=== PATIENT | female | born 1950 | race Caucasian/White ===

== ENCOUNTER 2017-10-30 07:55 | Day surgery (SDC) | payer MEDICARE, OTHER ==
[~2017-10-30 07:55] MED LIST: Lactated Ringers 1,000 ML IV SCH; Lidocaine 1%/Sod Bicarbonate in NS 8.4% 1 ML Syringe IDERM PRN; Sodium Chloride 0.9% 10 ML Syringe FLUSH PRN
[2017-10-30] MEDS ORDERED: Midazolam 1 MG/ML 2 ML SDV ONE (08:31)
[2017-10-30] MEDS ORDERED: Propofol 200 MG/20 ML SDV ONE ×2 (08:31→09:40)
[2017-10-30] MEDS ORDERED: Lidocaine 1% 4 ML ONE (08:31)
[2017-10-30] MEDS ORDERED: fentaNYL 100 MCG/2 ML SDV ONE (08:31)
[2017-10-30] MEDS ORDERED: Ondansetron 4 MG/2 ML SDV ONE (08:31)
--- NOTE | 2017-10-30 08:37 | PCM.PREANE ---
Preanesthetic Assessment - Procedure Proposed Procedure: Uterine D&C, polypectomy and hysteroscopy - Anesthesia/Transfusion/Family Hx Anesthesia History: Prior Anesthesia Without Reaction Type of Anesthesia Reaction: Excessive Somnolence Family History of Anesthesia Reaction: No Transfusion History: No Prior Transfusion(s) Intubation History: Unknown - Review of Systems General: No Symptoms Pulmonary: No Symptoms Cardiovascular: Other (HTN, HLD, heart murmer ) Gastrointestinal: Other (GERD- none at the moment ) Neurological: No Symptoms Other: Reports: Easy Bruising (from ASA), Diabetes, Depression - Physical Assessment NPO Status Date: 10/29/17 NPO Status Time: 22:00 O2 Sat by Pulse Oximetry: 92 Respiratory Rate: 16 Vital Signs: Last Vital Signs Temp 36.4 C 10/30/17 07:50 Pulse 94 10/30/17 07:50 Resp 16 10/30/17 07:50 BP 149/85 H 10/30/17 07:50 Pulse Ox 92 L 10/30/17 07:50 ASA Class: 2 Mental Status: Alert & Oriented x3 Airway Class: Mallampati = 2 Dentition: Reports: Missing Tooth/Teeth (multiple missing molars ) Thyro-Mental Finger Breadths: 3 Mouth Opening Finger Breadths: 3 ROM/Head Extension: Full Lungs: Clear to Auscultation, Normal Respiratory Effort Cardiovascular: Regular Rate, Regular Rhythm, Murmurs (slight ) - Lab Values: Laboratory Last Values WBC 6.80 K/mm3 (3.98-10.04) 10/30/17 08:15 RBC 4.93 M/mm3 (3.98-5.22) 10/30/17 08:15 Hgb 14.6 gm/L (11.2-15.7) 10/30/17 08:15 Hct 43.6 % (34.1-44.9) 10/30/17 08:15 MCV 88.4 fl (79.4-94.8) 10/30/17 08:15 MCH 29.6 pg (25.6-32.2) 10/30/17 08:15 MCHC 33.5 g/dl (32.2-35.5) 10/30/17 08:15 RDW Std Deviation 42.9 fL (36.4-46.3) 10/30/17 08:15 Plt Count 290 K/mm3 (182-369) 10/30/17 08:15 MPV 11.3 fl (9.4-12.3) 10/30/17 08:15 Neut % (Auto) 58.6 % (34.0-71.1) 10/30/17 08:15 Lymph % (Auto) 28.5 % (19.3-51.7) 10/30/17 08:15 [place] % (Auto) 8.7 % (4.7-12.5) 10/30/17 08:15 Eos % (Auto) 3.4 (0.7-5.8) 10/30/17 08:15 Baso % (Auto) 0.7 % (0.1-1.2) 10/30/17 08:15 Neut # (Auto) 3.98 K/mm3 (1.56-6.13) 10/30/17 08:15 Lymph # (Auto) 1.94 K/mm3 (1.18-3.74) 10/30/17 08:15 [place] # (Auto) 0.59 K/mm3 (0.24-0.36) H 10/30/17 08:15 Eos # (Auto) 0.23 K/mm3 (0.04-0.36) 10/30/17 08:15 Baso # (Auto) 0.05 K/mm3 (0.01-0.08) 10/30/17 08:15 - Allergies Allergies/Adverse Reactions: Allergies Allergy/AdvReac Type Severity Reaction Status Date / Time sulfamethoxazole Allergy Rash Verified 10/29/17 11:38 [From Bactrim] trimethoprim [From Bactrim] Allergy Rash Verified 10/29/17 11:38 - Blood Blood Available: No Product(s) Available: None - Anesthesia Plan Pre-Op Medication Ordered: None - Acknowledgements Anesthesia Type Planned: General Anesthesia (If MAC is not tolerated ), MAC Pt an Appropriate Candidate for the Planned Anesthesia: Yes Alternatives and Risks of Anesthesia Discussed w Pt/Guardian: Yes Pt/Guardian Understands and Agrees with Anesthesia Plan: Yes PreAnesthesia Questionnaire HEENT History: Reports: Cataract, Sinusitis Cardiovascular History: Reports: High Cholesterol, Hypertension Respiratory History: Reports: None Gastrointestinal History: Reports: GERD Genitourinary History: Reports: UTI, Recurrent CONTRACT PROGRAMMER History: Reports: , Other (See Below) Other OB/BYN History: , breast pain, cervical atypia, cervical lesion, cervical polyp, pelvic pressure Musculoskeletal History: Reports: Osteoporosis, Other (See Below) Other Musculoskeletal History: Muscle spasms Neurological History: Reports: Migraines, Other (See Below) Other Neuro History: trigeminal neuralgia Psychiatric History: Reports: Anxiety, Depression, Other (See Below) Other Psychiatric History: fatigue Endocrine/Metabolic History: Reports: Diabetes, Type II, Vitamin D Deficiency Hematologic History: Reports: Anemia Immunologic History: Reports: None Oncologic (Cancer) History: Reports: None Dermatologic History: Reports: None - Past Surgical History Head Surgeries/Procedures: Reports: None HEENT Surgical History: Reports: None Cardiovascular Surgical History: Reports: None Respiratory Surgical History: Reports: None GI Surgical History: Reports: Appendectomy Female Surgical History: Reports: None Male Surgical History: Reports: None Endocrine Surgical History: Reports: None Neurological Surgical History: Reports: None Oncologic Surgical History: Reports: None Dermatological Surgical History: Reports: None - SUBSTANCE USE Smoking Status *Q: Never Smoker Recreational Drug Use History: No - HOME MEDS Home Medications: Home Meds Alendronate Sodium [Fosamax] 70 mg PO WEEKLY 10/29/17 [History] Aspirin [Halfprin] 81 mg PO DAILY 10/29/17 [History] Calcium Carbonate/Vitamin D3 [Calcium 600 + Vit D 400 Softgl] 1 tab PO DAILY 04/10 [History] Escitalopram [Lexapro] 10 mg PO DAILY 10/29/17 [History] Losartan [Cozaar] 100 mg PO DAILY 10/29/17 [History] Lutein 20 mg PO DAILY 10/29/17 [History] Magnesium Oxide/Mag AA Chelate [Magnesium] 300 mg PO DAILY 10/29/17 [History] Potassium Chloride 10 meq PO DAILY 10/29/17 [History] Ranitidine HCl [Zantac] 150 mg PO DAILY 10/29/17 [History] atorvaSTATin [Lipitor] 20 mg PO BEDTIME 10/29/17 [History] metFORMIN [Glucophage XR] 500 mg PO BID 10/29/17 [History] - CURRENT (IN HOUSE) MEDS Current Meds: Current Medications Lactated Ringer's (Ringers, Lactated) 1,000 mls @ 125 mls/hr IV ASDIRECTED SHERMAN Stop: 10/30/17 23:00 Lidocaine/Sodium Bicarbonate (Buffered Lidocaine 1% In Ns 8.4%) 0.25 ml IDERM ONETIME PRN PRN Reason: Prior to IV Start Stop: 10/30/17 18:00 Sodium Chloride (Saline Flush) 10 ml FLUSH ASDIRECTED PRN PRN Reason: Keep Vein Open Stop: 10/30/17 18:00 Discontinued Medications Fentanyl (Sublimaze) Confirm Administered Dose 100 mcg .ROUTE .STK-MED ONE Stop: 10/30/17 08:32 Lidocaine HCl (Xylocaine-Mpf 1%) Confirm Administered Dose 4 mls @ as directed .ROUTE .STK-MED ONE Stop: 10/30/17 08:32 Midazolam HCl (Versed 1 Mg/Ml) Confirm Administered Dose 2 mg .ROUTE .STK-MED ONE Stop: 10/30/17 08:32 Ondansetron HCl (Zofran) Confirm Administered Dose 4 mg .ROUTE .STK-MED ONE Stop: 10/30/17 08:32 Propofol (Diprivan 20 Ml) Confirm Administered Dose 200 mg .ROUTE .STK-MED ONE Stop: 10/30/17 08:32
[2017-10-30] MEDS ORDERED: Lidocaine 1% 30 ML SDV ONE (08:59)
[2017-10-30] MEDS ORDERED: Ketamine 500 mg/10 ML MDV ONE (09:09)
[2017-10-30] MEDS ORDERED: ceFAZolin 1 GM Vial ONE (09:09)
[2017-10-30] MEDS ORDERED: Bacitracin Oint 15 GM Tube ONE (09:39)
--- NOTE | 2017-10-30 09:56 | PCM48HPAN ---
Post Anesthesia Note - EVALUATION WITHIN 48HRS OF ANESTHETIC Vital Signs in Normal Range: Yes Patient Participated in Evaluation: Yes Respiratory Function Stable: Yes Airway Patent: Yes Cardiovascular Function Stable: Yes Hydration Status Stable: Yes Pain Control Satisfactory: Yes Nausea and Vomiting Control Satisfactory: Yes Mental Status Recovered: Yes
--- NOTE | 2017-10-30 09:57 | PCM.OPNOTE ---
- General Post-Op/Procedure Note Date of Surgery/Procedure: 10/30/17 Operative Procedure(s): Polypectomy with hysteroscopy and D&C [id number] approximately 6 x 6 x 6 mm. Vulvar biopsy first 622915-8 mm biopsy. Vulvar biopsy second and third 157383-7 mm biopsy Pre Op Diagnosis: Cervical polyp. Vulvar leukoplakia Post-Op Diagnosis: Same Anesthesia Technique: MAC Primary Surgeon: Ferny Lugo Anesthesia Provider: Isabel Jasso Contract Negotiation Manager: Quinn Etienne ([place]) Reason Contract Negotiation Manager Was Necessary: Student learning, retraction Role of Contract Negotiation Manager: Student learning, retraction Fluid Replacement, Intraop: 600 Output, Urine Amount: 0 EBL in mLs: 2 Drain/Tube Comments:: None Complications: None Condition: Good Free Text/Narrative:: Patient was transported to operating room #2 and placed under MAC anesthesia in the low dorsal lithotomy position and prepared and draped in a sterile fashion. SCDs in place and functioning prior surgery. Ancef 2 g given intravenously prior surgery. Timeout performed confirming name date of and procedure as vulvar biopsies hysteroscopy with polypectomy and D&C. The patient had several small lesions of leukoplakia of the vulva. Injected half milliliter of lidocaine 1% without epinephrine in the areas the planned biopsies. 4 mm but punch biopsies performed on the right labia minora inferior left labia minora inferior and at the introitus midline. Hemostasis was obtained with electrocautery tissue was sent to pathology for tissue evaluation. The cervix was grasped with a long Allis clamp and the 6 x 6 x 6 mm cervical polyp was grasped and utilizing tonsil snare is a polyp was removed without difficulty. Endocervical curettage performed uterus sounded to 7 cm and carefully dilated to accommodate the hysteroscope. Hysteroscopy was performed both tubal ostia were visualized. The endometrial lining was atrophic. No additional polyps. Endocervical curettage was performed and scant tissue was obtained probably insufficient for diagnosis. This is consistent with the patient's age and history. Sponge needle pack instrument count correct 2 patient was transported back to her room in day surgery. No complications no blood transfusions required. Bacitracin placed on the areas of the punch biopsies. Patient will apply this 2-3 times daily at home. I talked with her daughter at phone #[phone] IS answered voiced satisfaction.
== END 2017-10-30 11:50 | disposition home or self-care (01) ==
LOC: JD.SDS 07:55
PROVIDERS: ATTEND Obstetrics & Gynecology
DX: N76.3 Subacute and chronic vulvitis (principal); N90.69 Other specified hypertrophy of vulva; N84.1 Polyp of cervix uteri; N90.4 Leukoplakia of vulva; I10 Essential (primary) hypertension; E11.9 Type 2 diabetes mellitus without complications; K21.9 Gastro-esophageal reflux disease without esophagitis; E78.5 Hyperlipidemia, unspecified; F32.9 Major depressive disorder, single episode, unspecified; Z88.1 Allergy status to other antibiotic agents; Z88.2 Allergy status to sulfonamides; J30.81 Allergic rhinitis due to animal (cat) (dog) hair and dander; Z79.82 Long term (current) use of aspirin; Z79.84 Long term (current) use of oral hypoglycemic drugs; Z79.899 Other long term (current) drug therapy; Z72.0 Tobacco use
CPT/HCPCS: 36415; 56605; 56606; 58558; 80053; 85025; 86850; 86900; 86901; A9270; J0690; J2250; J2405; J3010; J7120; 00952; 88305; J2704

== ENCOUNTER 2020-02-21 06:46 | Day surgery (SDC) | payer MEDICARE, OTHER ==
[2020-02-21] MEDS ORDERED: Bupivacaine 0.5% 30 ML SDV ONE (07:09)
[2020-02-21] MEDS ORDERED: Sodium Chloride 0.9% 50 ML SDV ONE (07:09)
[2020-02-21] MEDS ORDERED: Lidocaine 1% with EPINEPHrine 1:100,000 20 ML MDV ONE (07:09)
[2020-02-21] MEDS ORDERED: Ondansetron 4 MG/2 ML SDV ONE (07:41)
[2020-02-21] MEDS ORDERED: Rocuronium 50 MG/5 ML Vial ONE (07:41)
[2020-02-21] MEDS ORDERED: Propofol 200 MG/20 ML SDV ONE (07:41)
[2020-02-21] MEDS ORDERED: Lidocaine 1% 4 ML ONE (07:42)
[2020-02-21] MEDS ORDERED: Midazolam 1 MG/ML 2 ML SDV ONE (07:42)
[2020-02-21] MEDS ORDERED: fentaNYL 250 MCG/5 ML SDV ONE (07:42)
[2020-02-21] MEDS ORDERED: Ketorolac 30 MG/ML SDV ONE (07:42)
[2020-02-21] MEDS ORDERED: ceFAZolin 1 GM Vial ONE (07:46)
[2020-02-21] MEDS ORDERED: ePHEDrine Sulfate/0.9% NaCl/Pf 25 MG/5 ML SYRINGE IV ONE (08:23)
[2020-02-21] MEDS ORDERED: Lactated Ringers 1,000 ML ONE (08:31)
[2020-02-21] MEDS ORDERED: HYDROmorphone 1 MG/ML Syringe ONE (08:49)
[2020-02-21] MEDS ORDERED: Dexamethasone 4 MG/ML 5 ML MDV ONE (08:54)
[2020-02-21] MEDS ORDERED: fentaNYL 100 MCG/2 ML SDV ONE (08:57)
--- NOTE | 2020-02-21 09:54 | PCM.OPNOTE ---
- General Post-Op/Procedure Note Date of Surgery/Procedure: 02/21/20 Operative Procedure(s): Laparoscope assisted vaginal hysterectomy with bilateral salpingo-oophorectomy Pre Op Diagnosis: Right ovarian cyst, elevated CEA. Post-Op Diagnosis: Same Anesthesia Technique: General ET Tube Primary Surgeon: Ferny Lugo Secondary Surgeon: Obinna Melendez Anesthesia Provider: Derian Alexander Qa Analyst: Sophia Lewis (PAS) Reason Qa Analyst Was Necessary: Assist in surgery, retraction, decrease comorbidity and mortality. Role of Qa Analyst: Assist in surgery, retraction, decrease comorbidity and mortality. Fluid Replacement, Intraop: 1,800 Output, Urine Amount: 400 EBL in mLs: 25 Drain/Tube Comments:: None Complications: None Condition: Good Free Text/Narrative:: Intake & Output 02/20/20 02/21/20 02/21/20 22:59 06:59 14:59 Output Total 375 Balance -375 Patient was transported to the operating room and medical office building surgery area room #3 placed under general anesthesia with endotracheal intubation in the low dorsolithotomy position prepared and draped in a sterile fashion. Mason catheter placed to gravity drainage. Timeout was performed confirming name date of and procedure as laparoscopic-assisted vaginal hysterectomy bilateral salpingo-oophorectomy possible total abdominal hysterectomy bilateral salpingo-oophorectomy. SCDs in place and functioning prior to surgery. Ancef 2 g given intravenously prior to surgery. The uterine manipulator was placed without difficulty. Patient had laparoscopy performed by injecting 2 mL of Marcaine 0.5% without epinephrine at the area of the umbilicus. Vertical incision was made pneumoperitoneum needle was introduced and pneumoperitoneum was obtained without difficulty. 5 mm trocar self- retaining was introduced. Prompt visualization of pelvic organs was accomplished additional ports were placed at the right and left lower quadrants after transilluminating the abdomen to avoid vascular injury if possible. Injecting 2 mL of Marcaine 0.5% without epinephrine 5 mm incision made in the self-retaining ports were introduced. The uterus tubes and ovaries were identified the right ovary did appear cystic but was not abnormally enlarged approximately 2.5 cm cyst on the right ovary. No fluid in the cul-de-sac for as piration for cytology. Patient's had previous appendectomy. Gallbladder was not able to be visualized liver appeared normal. There were no adhesions of the liver to the anterior abdominal wall. No evidence of studding or abnormal appearing masses. The attention was then turned to the pelvis the uterus was grasped and utilizing Enseal crossclamping activating and incising the utero- ovarian ligament was crossclamped incised after activating the Enseal. Proceeding caudad the mesosalpinx removing the remaining portion of fallopian tubes with crossclamping activating and incising with the Enseal. The round ligament was then crossclamped Enseal activated and incised. Proceeding caudad crossclamping activating and incising until reflection of the bladder to the lower uterine segment was approached. Bladder flap was created utilizing the Enseal. Additional bite with the Enseal obtained the uterine vascular tumor electrocoagulating laterally and then again electrocoagulating medially and incising the procedure on the right side was completed laparoscopically. Same procedure was carried out on the left side. Attention was then turned to the pelvis the uterus was grasped injecting lidocaine 0.25% with epinephrine and multiple confluent areas utilizing 22 mL. Circumscribing incision was then made posterior cul-de-sac was entered with Metzenbaum scissors without difficulty. The anterior colpotomy was also performed without difficulty. Utilizing Enseal crossclamping activating and incising the uterosacral bundle and cardinal ligaments were incised. One additional bite on the left side completed the removal of vessels and tissue on the patient's left side. Same procedure was carried out on the right side utilizing 2 applications of the Enseal and the uterus was removed without difficulty. No vaginal bleeding was noted the posterior cuff was then grasped and closed with 0 Monocryl running locking suture beginning on the patient's right and proceeding to her left side. The anterior and posterior vaginal cuff were then suture-ligated beginning on the patient's left and proceeding to her right. Hemostasis was normal no bleeding attention was then turned to the abdomen again the pneumoperitoneum was reobtained inspection of the operative site showed no bleeding. The pneumoperitoneum was reduced and the 3 incisions on the abdomen were suture- ligated with 3-0 Monocryl interrupted suture Dermabond was applied patient was transported to postanesthesia care unit in satisfactory condition no blood transfusions were required. Mason catheter was removed at the end of the procedure. I talked with patient's daughter after surgery all questions were answered to her voiced satisfaction. Images taken Image 001 shows the uterus and left round ligament Image 002 shows a left ovary and remaining portion of fallopian tube Image 003 shows the right fallopian tube and right ovary which appears cystic. Image 004 shows the area of the previous appendectomy. Image 005 shows the liver gallbladder is not visualized. Image 006 shows the cul-de-sac after completion of the hysterectomy with no active bleeding. Image 007 shows right lower quadrant trocar removal with no bleeding. Patient will be kept on extended recovery overnight as she lives more than an hour away from the hospital in case there are any problems or complications.
--- NOTE | 2020-02-21 10:06 | PCM.PREANE ---
Preanesthetic Assessment - Procedure Proposed Procedure: lap assisted vaginal hysterectomy - Anesthesia/Transfusion/Family Hx Anesthesia History: Prior Anesthesia Without Reaction Family History of Anesthesia Reaction: No Transfusion History: No Prior Transfusion(s) Intubation History: Unknown - Review of Systems General: No Symptoms Pulmonary: No Symptoms Cardiovascular: Dyspnea on Exertion Gastrointestinal: No Symptoms Neurological: No Symptoms Other: Reports: Easy Bleeding, Easy Bruising, Diabetes (118 this am), Depression (in winter) - Physical Assessment NPO Status Date: 02/20/20 NPO Status Time: 22:00 Vital Signs: Last Vital Signs Temp 36.3 C 02/21/20 07:10 Pulse 75 02/21/20 07:10 Resp 16 02/21/20 07:10 BP 135/79 02/21/20 07:10 Pulse Ox 94 L 02/21/20 07:10 Height: 1.6 m Weight: 72.575 kg ASA Class: 3 Mental Status: Alert & Oriented x3 Airway Class: Mallampati = 2 Dentition: Reports: [place] Neck(s), Implants (front top) Thyro-Mental Finger Breadths: 2 Mouth Opening Finger Breadths: 2 ROM/Head Extension: Limited/Partial Lungs: Clear to Auscultation, Normal Respiratory Effort Cardiovascular: Regular Rate, Regular Rhythm, Murmurs - Lab Values: Laboratory Last Values WBC 7.16 K/mm3 (3.98-10.04) 02/21/20 07:27 RBC 4.46 M/mm3 (3.98-5.22) 02/21/20 07:27 Hgb 13.3 gm/dl (11.2-15.7) 02/21/20 07:27 Hct 40.4 % (34.1-44.9) 02/21/20 07:27 MCV 90.6 fl (79.4-94.8) 02/21/20 07:27 MCH 29.8 pg (25.6-32.2) 02/21/20 07:27 MCHC 32.9 g/dl (32.2-35.5) 02/21/20 07:27 RDW Std Deviation 43.4 fL (36.4-46.3) 02/21/20 07:27 Plt Count 275 K/mm3 (182-369) 02/21/20 07:27 MPV 10.8 fl (9.4-12.3) 02/21/20 07:27 Neut % (Auto) 59.7 % (34.0-71.1) 02/21/20 07:27 Lymph % (Auto) 27.1 % (19.3-51.7) 02/21/20 07:27 [place] % (Auto) 8.1 % (4.7-12.5) 02/21/20 07:27 Eos % (Auto) 4.2 (0.7-5.8) 02/21/20 07:27 Baso % (Auto) 0.6 % (0.1-1.2) 02/21/20 07:27 Neut # (Auto) 4.28 K/mm3 (1.56-6.13) 02/21/20 07:27 Lymph # (Auto) 1.94 K/mm3 (1.18-3.74) 02/21/20 07:27 [place] # (Auto) 0.58 K/mm3 (0.24-0.36) H 02/21/20 07:27 Eos # (Auto) 0.30 K/mm3 (0.04-0.36) 02/21/20 07:27 Baso # (Auto) 0.04 K/mm3 (0.01-0.08) 02/21/20 07:27 Sodium 139 mEq/L (136-145) 02/21/20 07:27 Potassium 4.0 mEq/L (3.5-5.1) 02/21/20 07:27 Chloride 105 mEq/L (98-107) 02/21/20 07:27 Carbon Dioxide 24 mEq/L (21-32) 02/21/20 07:27 Anion Gap 14.0 (5-15) 02/21/20 07:27 BUN 14 mg/dL (7-18) 02/21/20 07:27 Creatinine 1.0 mg/dL (0.55-1.02) 02/21/20 07:27 Est Cr Clr Drug Dosing 43.92 mL/min 02/21/20 07:27 Estimated GFR (MDRD) 55 mL/min (>60) 02/21/20 07:27 BUN/Creatinine Ratio 14.0 (14-18) 02/21/20 07:27 Glucose 121 mg/dL (80-115) H 02/21/20 07:27 POC Glucose 118 mg/dL (80-115) H 02/21/20 07:24 Calcium 9.1 mg/dL (8.5-10.1) 02/21/20 07:27 Magnesium 2.1 mg/dl (1.8-2.4) 02/21/20 07:27 Total Bilirubin 0.5 mg/dL (0.2-1.0) 02/21/20 07:27 AST 22 U/L (15-37) 02/21/20 07:27 ALT 29 U/L (14-59) 02/21/20 07:27 Alkaline Phosphatase 67 U/L (46-116) 02/21/20 07:27 Total Protein 7.2 g/dl (6.4-8.2) 02/21/20 07:27 Albumin 3.4 g/dl (3.4-5.0) 02/21/20 07:27 Globulin 3.8 gm/dL 02/21/20 07:27 Albumin/Globulin Ratio 0.9 (1-2) L 02/21/20 07:27 COVID-19 PCR Not detected (NOT DETECT) 02/17/20 10:00 Blood Type A POSITIVE 02/21/20 07:27 Gel Antibody Screen Negative 02/21/20 07:27 - Imaging/EKG Impressions: EKG SR rate 56 on chart - Allergies Allergies/Adverse Reactions: Allergies Allergy/AdvReac Type Severity Reaction Status Date / Time sulfamethoxazole Allergy Rash Verified 02/21/20 07:56 [From Bactrim] trimethoprim [From Bactrim] Allergy Rash Verified 02/21/20 07:56 - Blood Blood Available: Yes Product(s) Available: PRBC - Anesthesia Plan Pre-Op Medication Ordered: None - Acknowledgements Anesthesia Type Planned: General Anesthesia Pt an Appropriate Candidate for the Planned Anesthesia: Yes Alternatives and Risks of Anesthesia Discussed w Pt/Guardian: Yes Pt/Guardian Understands and Agrees with Anesthesia Plan: Yes PreAnesthesia Questionnaire HEENT History: Reports: Allergic Rhinitis, Cataract, Impaired Vision, Sinusitis, Other (See Below) Other HEENT History: sore throat Cardiovascular History: Reports: High Cholesterol, Hypertension, Other (See Below) Other Cardiovascular History: PVCs Respiratory History: Reports: None Gastrointestinal History: Reports: Gastritis, GERD, Other (See Below) Other Gastrointestinal History: epigastric pain, dysphagia, esophagitis, GERD, hiatal hernia, Genitourinary History: Reports: UTI, Recurrent, Other (See Below) Other Genitourinary History: frequency SENIOR CAREGIVER History: Reports: , Other (See Below) Other OB/BYN History: , breast pain, cervical atypia, cervical lesion, cervical polyp, pelvic pressure Musculoskeletal History: Reports: Osteoporosis, Other (See Below) Other Musculoskeletal History: Muscle spasms Neurological History: Reports: Migraines, Other (See Below) Other Neuro History: trigeminal neuralgia, thoracic spine pain Psychiatric History: Reports: Anxiety, Depression, Other (See Below) Other Psychiatric History: fatigue Endocrine/Metabolic History: Reports: Diabetes, Type II, Vitamin D Deficiency Hematologic History: Reports: Anemia Immunologic History: Reports: None Oncologic (Cancer) History: Reports: None Dermatologic History: Reports: None - Infectious Disease History Infectious Disease History: Reports: None - Past Surgical History Head Surgeries/Procedures: Reports: None HEENT Surgical History: Reports: None, Cataract Surgery Cardiovascular Surgical History: Reports: None Respiratory Surgical History: Reports: None GI Surgical History: Reports: Appendectomy, Colonoscopy, EGD Female Surgical History: Reports: None Male Surgical History: Reports: None Endocrine Surgical History: Reports: Parathyroidectomy Neurological Surgical History: Reports: None Oncologic Surgical History: Reports: None Dermatological Surgical History: Reports: None - SUBSTANCE USE Smoking Status *Q: Never Smoker Tobacco Use Within Last Twelve Months: No Second Hand Smoke Exposure: No Days Per Week of Alcohol Use: 0 Number of Drinks Per Day: 0 Total Drinks Per Week: 0 Recreational Drug Use History: No - HOME MEDS Home Medications: Home Meds Escitalopram [Lexapro] 10 mg PO DAILY 10/29/17 [History] Potassium Chloride 20 meq PO QAM 10/29/17 [History] atorvaSTATin [Lipitor] 20 mg PO BEDTIME 10/29/17 [History] metFORMIN [Glucophage XR] 500 mg PO BID 10/29/17 [History] Calcium Carbonate/Vitamin D3 [Calcium 500 + Vit D Caplet] 1 tab PO TID 03/05/19 [History] Magnesium Chloride [Slow-Mag] 1 tab PO DAILY 03/05/19 [History] Pantoprazole Sodium [Protonix] 40 mg PO DAILY 03/05/19 [History] Latanoprost 1 drop EYEBOTH BEDTIME 02/20/20 [History] Lutein 20 mg PO BEDTIME 02/20/20 [History] Olmesartan Medoxomil [Benicar] 40 mg PO QAM 02/20/20 [History] Potassium Chloride 10 meq PO BEDTIME 02/20/20 [History] SitaGLIPtin [Januvia] 100 mg PO QAM 02/20/20 [History] amLODIPine Besylate [Norvasc] 2.5 mg PO BEDTIME 02/20/20 [History] - CURRENT (IN HOUSE) MEDS Current Meds: Current Medications Lactated Ringer's (Ringers, Lactated) 1,000 mls @ 125 mls/hr IV ASDIRECTED SHERMAN Stop: 02/21/20 23:00 Last Admin: 02/21/20 07:15 Dose: 125 mls/hr Documented by: Lidocaine/Sodium Bicarbonate (Buffered Lidocaine 1% In Ns 8.4%) 0.25 ml IDERM ONETIME PRN PRN Reason: Prior to IV Start Stop: 02/21/20 18:00 Last Admin: 02/21/20 07:15 Dose: 0.25 ml Documented by: Sodium Chloride (Saline Flush) 10 ml FLUSH ASDIRECTED PRN PRN Reason: Keep Vein Open Stop: 02/21/20 18:00 Discontinued Medications Bupivacaine HCl (Marcaine 0.5%) Confirm Administered Dose 30 ml .ROUTE .STK-MED ONE Stop: 02/21/20 07:10 Last Admin: 02/21/20 08:31 Dose: 20 ml Documented by: Cefazolin Sodium (Ancef) Confirm Administered Dose 2 gm .ROUTE .STK-MED ONE Stop: 02/21/20 07:47 Dexamethasone (Dexamethasone) Confirm Administered Dose 20 mg .ROUTE .STK-MED ONE Stop: 02/21/20 08:55 Ephedrine Sulfate (Ephedrine 25 Mg/5 Ml Syringe) Confirm Administered Dose 25 mg IV .STK-MED ONE Stop: 02/21/20 08:24 Fentanyl (Sublimaze) Confirm Administered Dose 250 mcg .ROUTE .STK-MED ONE Stop: 02/21/20 07:43 Fentanyl (Sublimaze) Confirm Administered Dose 100 mcg .ROUTE .STK-MED ONE Stop: 02/21/20 08:58 Glycopyrrolate () Confirm Administered Dose 1 mg .ROUTE .STK-MED ONE Stop: 02/21/20 08:54 Hydromorphone HCl (Dilaudid) Confirm Administered Dose 1 mg .ROUTE .STK-MED ONE Stop: 02/21/20 08:50 Lidocaine HCl (Xylocaine-Mpf 1%) Confirm Administered Dose 4 mls @ as directed .ROUTE .STK-MED ONE Stop: 02/21/20 07:43 Lactated Ringer's (Ringers, Lactated) Confirm Administered Dose 1,000 mls @ as directed .ROUTE .STK-MED ONE Stop: 02/21/20 08:32 Ketorolac Tromethamine (Toradol) Confirm Administered Dose 30 mg .ROUTE .STK-MED ONE Stop: 02/21/20 07:43 Lidocaine/Epinephrine (Xylocaine 1% With Epinephrine 1:100,000) Confirm Administered Dose 20 ml .ROUTE .STK-MED ONE Stop: 02/21/20 07:10 Last Admin: 02/21/20 08:54 Dose: 5 ml Documented by: Midazolam HCl (Versed 1 Mg/Ml) Confirm Administered Dose 2 mg .ROUTE .STK-MED ONE Stop: 02/21/20 07:43 Miscellaneous Medication (Phenylephrine 1 Mg/10 Ml-Ns) Confirm Administered Dose 1 mg IV .STK-MED ONE Stop: 02/21/20 08:15 Ondansetron HCl (Zofran) Confirm Administered Dose 4 mg .ROUTE .STK-MED ONE Stop: 02/21/20 07:42 Propofol (Diprivan 20 Ml) Confirm Administered Dose 200 mg .ROUTE .STK-MED ONE Stop: 02/21/20 07:42 Rocuronium [place] (Zemuron) Confirm Administered Dose 50 mg .ROUTE .STK-MED ONE Stop: 02/21/20 07:42 Sodium Chloride (Normal Saline) Confirm Administered Dose 50 ml .ROUTE .STK-MED ONE Stop: 02/21/20 07:10 Last Admin: 02/21/20 08:54 Dose: 15 ml Documented by:
[2020-02-21] MEDS ORDERED: Ibuprofen 400 MG Tab PO PRN (10:08)
[2020-02-21] MEDS ORDERED: Ondansetron 4 MG/2 ML SDV IVPUSH PRN (10:08)
[2020-02-21] MEDS ORDERED: Acetaminophen 325 MG Tab PO PRN (10:08)
[2020-02-21] MEDS ORDERED: Acetaminophen/oxyCODONE 325-5 MG Tab PO PRN (10:08)
[2020-02-21] MEDS: Calcium Carbonate/Vitamin D3 600 MG-200 Units Tab PO SCH ×2 (15:12→20:48)
[2020-02-21] MEDS ORDERED: Ketorolac 15 MG/ML SDV IVPUSH PRN (15:30)
[2020-02-21] MEDS: metFORMIN 500 MG Tab PO SCH (20:48)
[2020-02-21] MEDS: Docusate Sodium 100 MG Cap PO SCH (20:55)
[2020-02-21] MEDS ORDERED: Simvastatin 20 MG Tab PO SCH (21:00)
[2020-02-21] MEDS ORDERED: Potassium Chloride 10 MEQ Tab.ER PO SCH (21:00)
[2020-02-21] MEDS ORDERED: Latanoprost 0.005% Ophth Soln 2.5 ML Bottle**OWN MED EYEBOTH SCH (21:00)
[2020-02-21] MEDS ORDERED: amLODIPine 2.5 MG Tab PO SCH (21:00)
[2020-02-22] MEDS ORDERED: Potassium Chloride 20 MEQ Tab.ER PO SCH (08:00)
[2020-02-22] MEDS ORDERED: Losartan 100 MG Tab PO SCH (08:00)
--- NOTE | 2020-02-22 08:20 | PCM.DCSUM1 ---
Discharge Summary - Hospital Course Free Text/Narrative:: [place] [facility] Post-Op/Procedure Note Patient Name: SALLY MORTON Date of : 1950 Patient Status: Surgical Day Care Attending Provider: Ferny Lugo Date: 02/21/20 09:43 Initialization Date: 02/21/20 09:43 - General Post-Op/Procedure Note Date of Surgery/Procedure: 02/21/20 Operative Procedure(s): Laparoscope assisted vaginal hysterectomy with bilateral salpingo-oophorectomy Pre Op Diagnosis: Right ovarian cyst, elevated CEA. Post-Op Diagnosis: Same Anesthesia Technique: General ET Tube Primary Surgeon: Ferny Lugo Secondary Surgeon: Obinna Melendez Anesthesia Provider: Derian Alexander Brick Unloader Tender: Sophia Lewis (PAS) Reason Brick Unloader Tender Was Necessary: Assist in surgery, retraction, decrease comorbidity and mortality. Role of Brick Unloader Tender: Assist in surgery, retraction, decrease comorbidity and mortality. Fluid Replacement, Intraop: 1,800 Output, Urine Amount: 400 EBL in mLs: 25 Drain/Tube Comments:: None Complications: None Condition: Good Free Text/Narrative:: Intake & Output 02/20/20 02/21/20 02/21/20 22:59 06:59 14:59 Output Total 375 Balance -375 Patient was transported to the operating room and medical office building surgery area room #3 placed under general anesthesia with endotracheal intubation in the low dorsolithotomy position prepared and draped in a sterile fashion. Mason catheter placed to gravity drainage. Timeout was performed confirming name date of and procedure as laparoscopic-assisted vaginal hysterectomy bilateral salpingo-oophorectomy possible total abdominal hysterectomy bilateral salpingo-oophorectomy. SCDs in place and functioning prior to surgery. Ancef 2 g given intravenously prior to surgery. The uterine manipulator was placed without difficulty. Patient had laparoscopy performed by injecting 2 mL of Marcaine 0.5% without epinephrine at the area of the umbilicus. Vertical incision was made pneumoperitoneum needle was introduced and pneumoperitoneum was obtained without difficulty. 5 mm trocar self- retaining was introduced. Prompt visualization of pelvic organs was accomplished additional ports were placed at the right and left lower quadrants after transilluminating the abdomen to avoid vascular injury if possible. Injecting 2 mL of Marcaine 0.5% without epinephrine 5 mm incision made in the self-retaining ports were introduced. The uterus tubes and ovaries were identified the right ovary did appear cystic but was not abnormally enlarged approximately 2.5 cm cyst on the right ovary. No fluid in the cul-de-sac for aspiration for cytology. Patient's had previous appendectomy. Gallbladder was not able to be visualized liver appeared normal. There were no adhesions of the liver to the anterior abdominal wall. No evidence of studding or abnormal appearing masses. The attention was then turned to the pelvis the uterus was grasped and utilizing Enseal crossclamping activating and incising the utero- ovarian ligament was crossclamped incised after activating the Enseal. Proceeding caudad the mesosalpinx removing the remaining portion of fallopian tubes with crossclamping activating and incising with the Enseal. The round ligament was then crossclamped Enseal activated and incised. Proceeding caudad crossclamping activating and incising until reflection of the bladder to the lower uterine segment was approached. Bladder flap was created utilizing the Enseal. Additional bite with the Enseal obtained the uterine vascular tumor javed ctrocoagulating laterally and then again electrocoagulating medially and incising the procedure on the right side was completed laparoscopically. Same procedure was carried out on the left side. Attention was then turned to the pelvis the uterus was grasped injecting lidocaine 0.25% with epinephrine and multiple confluent areas utilizing 22 mL. Circumscribing incision was then made posterior cul-de-sac was entered with Metzenbaum scissors without difficulty. The anterior colpotomy was also performed without difficulty. Utilizing Enseal crossclamping activating and incising the uterosacral bundle and cardinal ligaments were incised. One additional bite on the left side completed the removal of vessels and tissue on the patient's left side. Same procedure was carried out on the right side utilizing 2 applications of the Enseal and the uterus was removed without difficulty. No vaginal bleeding was noted the posterior cuff was then grasped and closed with 0 Monocryl running locking suture beginning on the patient's right and proceeding to her left side. The anterior and posterior vaginal cuff were then suture-ligated beginning on the patient's left and proceeding to her right. Hemostasis was normal no bleeding attention was then turned to the abdomen again the pneumoperitoneum was reobtained inspection of the operative site showed no bleeding. The pneumoperitoneum was reduced and the 3 incisions on the abdomen were suture- ligated with 3-0 Monocryl interrupted suture Dermabond was applied patient was transported to postanesthesia care unit in satisfactory condition no blood transfusions were required. Mason catheter was removed at the end of the procedure. I talked with patient's daughter after surgery all questions were answered to her voiced satisfaction. Images taken Image 001 shows the uterus and left round ligament Image 002 shows a left ovary and remaining portion of fallopian tube Image 003 shows the right fallopian tube and right ovary which appears cystic. Image 004 shows the area of the previous appendectomy. Image 005 shows the liver gallbladder is not visualized. Image 006 shows the cul-de-sac after completion of the hysterectomy with no ac tive bleeding. Image 007 shows right lower quadrant trocar removal with no bleeding. Patient will be kept on extended recovery overnight as she lives more than an hour away from the hospital in case there are any problems or complications. HPI Initial Comments: [place] [facility] Post-Op/Procedure Note Patient Name: SALLY MORTON Date of : 1950 Patient Status: Surgical Day Care Attending Provider: Ferny Lugo Date: 02/21/20 09:43 Initialization Date: 02/21/20 09:43 - General Post-Op/Procedure Note Date of Surgery/Procedure: 02/21/20 Operative Procedure(s): Laparoscope assisted vaginal hysterectomy with bilateral salpingo-oophorectomy Pre Op Diagnosis: Right ovarian cyst, elevated CEA. Post-Op Diagnosis: Same Anesthesia Technique: General ET Tube Primary Surgeon: Ferny Lugo Secondary Surgeon: Obinna Melendez Anesthesia Provider: Derian Alexander Brick Unloader Tender: Sophia Lewis (PAS) Reason Brick Unloader Tender Was Necessary: Assist in surgery, retraction, decrease comorbidity and mortality. Role of Brick Unloader Tender: Assist in surgery, retraction, decrease comorbidity and mortality. Fluid Replacement, Intraop: 1,800 Output, Urine Amount: 400 EBL in mLs: 25 Drain/Tube Comments:: None Complications: None Condition: Good Free Text/Narrative:: Intake & Output 02/20/20 02/21/20 02/21/20 22:59 06:59 14:59 Output Total 375 Balance -375 Patient was transported to the operating room and medical office [facility] surgery area room #3 placed under general anesthesia with endotracheal intubation in the low dorsolithotomy position prepared and draped in a sterile fashion. Mason catheter placed to gravity drainage. Timeout was performed confirming name date of and procedure as laparoscopic-assisted vaginal hysterectomy bilateral salpingo-oophorectomy possible total abdominal hysterectomy bilateral salpingo-oophorectomy. SCDs in place and functioning prior to surgery. Ancef 2 g given intravenously prior to surgery. The uterine manipulator was placed without difficulty. Patient had laparoscopy performed by injecting 2 mL of Marcaine 0.5% without epinephrine at the area of the umbilicus. Vertical incision was made pneumoperitoneum needle was introduced and pneumoperitoneum was obtained without difficulty. 5 mm trocar self- retaining was introduced. Prompt visualization of pelvic organs was accomplished additional ports were placed at the right and left lower quadrants after transilluminating the abdomen to avoid vascular injury if possible. Injecting 2 mL of Marcaine 0.5% without epinephrine 5 mm incision made in the self-retaining ports were introduced. The uterus tubes and ovaries were identified the right ovary did appear cystic but was not abnormally enlarged approximately 2.5 cm cyst on the right ovary. No fluid in the cul-de-sac for aspiration for cytology. Patient's had previous appendectomy. Gallbladder was not able to be visualized liver appeared normal. There were no adhesions of the liver to the anterior abdominal wall. No evidence of studding or abnormal appearing masses. The attention was then turned to the pelvis the uterus was grasped and utilizing Enseal crossclamping activating and incising the utero- ovarian ligament was crossclamped incised after activating the Enseal. Proceeding caudad the mesosalpinx removing the remaining portion of fallopian tubes with crossclamping activating and incising with the Enseal. The round ligament was then crossclamped Enseal activated and incised. Proceeding caudad crossclamping activating and incising until reflection of the bladder to the lower uterine segment was approached. Bladder flap was created utilizing the Enseal. Additional bite with the Enseal obtained the uterine vascular tumor electrocoagulating laterally and then again electrocoagulating medially and incising the procedure on the right side was completed laparoscopically. Same procedure was carried out on the left side. Attention was then turned to the pelvis the uterus was grasped injecting lidocaine 0.25% with epinephrine and multiple confluent areas utilizing 22 mL. Circumscribing incision was then made posterior cul-de-sac was entered with Metzenbaum scissors without difficulty. The anterior colpotomy was also performed without difficulty. Utilizing Enseal crossclamping activating and incising the uterosacral bundle and cardinal ligaments were incised. One additional bite on the left side completed the removal of vessels and tissue on the patient's left side. Same procedure was carried out on the right side utilizing 2 applications of the Enseal and the uterus was removed without difficulty. No vaginal bleeding was noted the posterior cuff was then grasped and closed with 0 Monocryl running locking suture beginning on the patient's right and proceeding to her left side. The anterior and posterior vaginal cuff were then suture-ligated beginning on the patient's left and proceeding to her right. Hemostasis was normal no bleeding attention was then turned to the abdomen again the pneumoperitoneum was reobtained inspection of the operative site showed no bleeding. The pneumoperitoneum was reduced and the 3 incisions on the abdomen were suture- ligated with 3-0 Monocryl interrupted suture Dermabond was applied patient was transported to postanesthesia care unit in satisfactory condition no blood transfusions were required. Mason catheter was removed at the end of the procedure. I talked with patient's daughter after surgery all questions were answered to her voiced satisfaction. Images taken Image 001 shows the uterus and left round ligament Image 002 shows a left ovary and remaining portion of fallopian tube Image 003 shows the right fallopian tube and right ovary which appears cystic. Image 004 shows the area of the previous appendectomy. Image 005 shows the liver gallbladder is not visualized. Image 006 shows the cul-de-sac after completion of the hysterectomy with no active bleeding. Image 007 shows right lower quadrant trocar removal with no bleeding. Patient will be kept on extended recovery overnight as she lives more than an hour away from the hospital in case there are any problems or complications. Brief History: [facility] . Post-Op/Procedure Note. [facility]: [id number]. Date of : 1950Patient Status: Surgical Day Care. Attending Provider: Ferny Lugo Number: [id number]. Date: 02/21/20 09:43Initialization Date: 02/21/20 09:43. - General Post-Op/Procedure Note. Date of Surgery/Procedure: 02/21/20. Operative Procedure(s): Laparoscope assisted vaginal hysterectomy with bilateral salpingo-oophorectomy. Pre Op Diagnosis: Right ovarian cyst, elevated CEA. Post-Op Diagnosis: Same. Anesthesia Technique: General ET Tube. Primary Surgeon: Ferny Lugo. Secondary Surgeon: Obinna Melendez. Anesthesia Provider: Derian Alexander. Brick Unloader Tender: Sophia Lewis ([facility]). Reason Brick Unloader Tender Was Necessary: Assist in surgery, retraction, decrease comorbidity and mortality. Role of Brick Unloader Tender: Assist in surgery, retraction, decrease comorbidity and mortality. Fluid Replacement, Intraop: 1,800. Output, Urine Amount: 400. EBL in mLs: 25. Drain/Tube Comments:: None. Complications: None. Condition: Good. Free Text/Narrative:: Intake & Output. 02/19/2006/. [id number]:[id number]. Output [id number]. Balance-375. Patient was transported to the operating room and medical office [facility] surgery area room #3 placed under general anesthesia with endotracheal intuba tion in the low dorsolithotomy position prepared and draped in a sterile fashion. Mason catheter placed to gravity drainage. Timeout was performed confirming name date of and procedure as laparoscopic-assisted vaginal hysterectomy bilateral salpingo-oophorectomy possible total abdominal hysterectomy bilateral salpingo-oophorectomy. SCDs in place and functioning prior to surgery. Ancef 2 g given intravenously prior to surgery. The uterine manipulator was placed without difficulty. Patient had laparoscopy performed by injecting 2 mL of Marcaine 0.5% without epinephrine at the area of the umbilicus. Vertical incision was made pneumoperitoneum needle was introduced and pneumoperitoneum was obtained without difficulty. 5 mm trocar self- retaining was introduced. Prompt visualization of pelvic organs was accomplished additional ports were placed at the right and left lower quadrants after transilluminating the abdomen to avoid vascular injury if possible. Injecting 2 mL of Marcaine 0.5% without epinephrine 5 mm incision made in the self-retaining ports were introduced. The uterus tubes and ovaries were identified the right ovary did appear cystic but was not abnormally enlarged approximately 2.5 cm cyst on the right ovary. No fluid in the cul-de-sac for aspiration for cytology. Patient's had previous appendectomy. Gallbladder was not able to be visualized liver appeared normal. There were no adhesions of the liver to the anterior abdominal wall. No evidence of studding or abnormal appearing masses. The attention was then turned to the pelvis the uterus was g rasped and utilizing Enseal crossclamping activating and incising the utero- ovarian ligament was crossclamped incised after activating the Enseal. Proceeding caudad the mesosalpinx removing the remaining portion of fallopian tubes with crossclamping activating and incising with the Enseal. The round ligament was then crossclamped Enseal activated and incised. Proceeding caudad crossclamping activating and incising until reflection of the bladder to the lower uterine segment was approached. Bladder flap was created utilizing the Enseal. Additional bite with the Enseal obtained the uterine vascular tumor electrocoagulating laterally and then again electrocoagulating medially and incising the procedure on the right side was completed laparoscopically. Same procedure was carried out on the left side. Attention was then turned to the pelvis the uterus was grasped injecting lidocaine 0.25% with epinephrine and multiple confluent areas utilizing 22 mL. Circumscribing incision was then made posterior cul-de-sac was entered with Metzenbaum scissors without difficulty. The anterior colpotomy was also performed without difficulty. Utilizing Enseal crossclamping activating and incising the uterosacral bundle and cardinal ligaments were incised. One additional bite on the left side completed the removal of vessels and tissue on the patient's left side. Same procedure was carried out on the right side utilizing 2 applications of the Enseal and the uterus was removed without difficulty. No vaginal bleeding was noted the posterior cuff was then grasped and closed with 0 Monocryl running locking suture beginning on the patient's right and proceeding to her left side. The anterior and posterior vaginal cuff were then suture-ligated beginning on the patient's left and proceeding to her right. Hemostasis was normal no bleeding attention was then turned to the abdomen again the pneumoperitoneum was reobtained inspection of the operative site showed no bleeding. The pneum operitoneum was reduced and the 3 incisions on the abdomen were suture-ligated with 3-0 Monocryl interrupted suture Dermabond was applied patient was transported to postanesthesia care unit in satisfactory condition no blood transfusions were required. Mason catheter was removed at the end of the procedure. I talked with patient's daughter after surgery all questions were answered to her voiced satisfaction. Images taken. Image 001 shows the uterus and left round ligament. Image 002 shows a left ovary and remaining portion of fallopian tube. Image 003 shows the right fallopian tube and right ovary which appears cystic. Image 004 shows the area of the previous appendectomy. Image 005 shows the liver gallbladder is not visualized. Image 006 shows the cul-de-sac after completion of the hysterectomy with no active bleeding. Image 007 shows right lower quadrant trocar removal with no bleeding. Patient will be kept on extended recovery overnight as she lives more than an hour away from the hospital in case there are any problems or complications. Diagnosis: Stroke: No - Discharge Data Discharge Date: 02/22/20 Discharge Disposition: Home, Self-Care 01 Condition: Good - Referral to Home Health Primary Care Physician: Janee Jiang PA-C - Discharge Diagnosis/Problem(s) (1) Ovarian cyst, right SNOMED Code(s): 11668153 ICD Code: N83.201 - UNSPECIFIED OVARIAN CYST, RIGHT SIDE Status: Acute Current Visit: Yes (2) Elevated CEA SNOMED Code(s): 809113855 ICD Code: R97.0 - ELEVATED CARCINOEMBRYONIC ANTIGEN [CEA] Status: Acute Current Visit: Yes - Patient Summary/Data Operative Procedure(s) Performed: Laparoscope assisted vaginal hysterectomy with bilateral salpingo-oophorectomy Complications: none Consults: none Hospital Course: none - Patient Instructions Diet: Diabetic Diet Driving: Do Not Drive (x2 weeks) Showering/Bathing: May Shower, No Tub Bathing/Swimming (x6 weeks) Wound/Incision Care: Keep Operative Site/Wound Site Clean and Dry Notify Provider of: Fever, Increased Pain, Swelling and Redness, Drainage, Nausea and/or Vomiting - Discharge Plan *PRESCRIPTION DRUG MONITORING PROGRAM REVIEWED*: Not Applicable *COPY OF PRESCRIPTION DRUG MONITORING REPORT IN PATIENT MARIA C: Not Applicable Prescriptions/Med Rec: Ibuprofen [Motrin] 200 mg PO Q6H PRN #50 tab PRN Reason: Pain Home Medications: Home Meds Escitalopram [Lexapro] 10 mg PO DAILY 10/29/17 [History] Potassium Chloride 20 meq PO QAM 10/29/17 [History] atorvaSTATin [Lipitor] 20 mg PO BEDTIME 10/29/17 [History] metFORMIN [Glucophage XR] 500 mg PO BID 10/29/17 [History] Calcium Carbonate/Vitamin D3 [Calcium 500-Vit D3 125 Caplet] 1 tab PO TID 03/05/19 [History] Magnesium Chloride [Slow-Mag] 1 tab PO DAILY 03/05/19 [History] Pantoprazole Sodium [Protonix] 40 mg PO DAILY 03/05/19 [History] Latanoprost 1 drop EYEBOTH BEDTIME 02/20/20 [History] Lutein 20 mg PO BEDTIME 02/20/20 [History] Olmesartan Medoxomil [Benicar] 40 mg PO QAM 02/20/20 [History] Potassium Chloride 10 meq PO BEDTIME 02/20/20 [History] SitaGLIPtin [Januvia] 100 mg PO QAM 02/20/20 [History] amLODIPine Besylate [Norvasc] 2.5 mg PO BEDTIME 02/20/20 [History] Acetaminophen [Tylenol] 650 mg PO Q6H PRN tablet 02/22/20 [Rx] Ibuprofen [Motrin] 200 mg PO Q6H PRN #50 tab 02/22/20 [Rx] Referrals: Ferny Lugo MD [Physician] - (2 weeks) - Discharge Summary/Plan Comment DC Time >30 min.: No - Patient Data Vitals - Most Recent: Last Vital Signs Temp 99.0 F 02/22/20 05:42 Pulse 84 02/22/20 05:42 Resp 16 02/22/20 05:42 BP 131/71 02/22/20 05:42 Pulse Ox 96 02/22/20 05:42 Weight - Most Recent: 160 lb I&O - Last 24 hours: Intake & Output 02/21/20 02/22/20 02/22/20 22:59 06:59 14:59 Output Total 1050 825 200 Balance -1050 -825 -200 Lab Results - Last 24 hrs: Laboratory Results - last 24 hr 02/21/20 02/21/20 Range/Units 07:27 20:54 POC Glucose 239 H (80-115) mg/dL Blood Type A POSITIVE Gel Antibody Screen Negative Med Orders - Current: Current Medications Acetaminophen (Tylenol) 650 mg PO Q4H PRN PRN Reason: Pain (mild 1-3) Alogliptin Benzoate (Alogliptin) 25 mg PO QAM [facility] Amlodipine Besylate (Norvasc) 2.5 mg PO BEDTIME [facility] Last Admin: 02/21/20 20:55 Dose: 2.5 mg Documented by: Calcium Carbonate (Calcium Carbonate/Vitamin D 600 Mg-200 Unit) 1 tab PO TID [facility] Last Admin: 02/21/20 20:48 Dose: 1 tab Documented by: Citalopram Hydrobromide (Celexa) 20 mg PO DAILY [facility] Docusate Sodium (Colace) 100 mg PO BID [facility] Last Admin: 02/21/20 20:55 Dose: 100 mg Documented by: Ibuprofen (Motrin) 600 mg PO Q6H PRN PRN Reason: Pain (mild 1-3) Last Admin: 02/22/20 05:54 Dose: 600 mg Documented by: Ketorolac Tromethamine (Toradol) 15 mg IVPUSH Q6H PRN PRN Reason: Pain Latanoprost (Xalatan 0.005% Ophth Soln) 0 ml EYEBOTH BEDTIME [facility] Last Admin: 02/21/20 22:04 Dose: 1 drop Documented by: Losartan Potassium (Cozaar) 100 mg PO QAM [facility] Magnesium Oxide (Magnesium Oxide) 400 mg PO DAILY [facility] Metformin HCl (Glucophage) 500 mg PO BID [facility] Last Admin: 02/21/20 20:48 Dose: 500 mg Documented by: Ondansetron HCl (Zofran) 4 mg IVPUSH Q4H PRN PRN Reason: Nausea/Vomiting Oxycodone/Acetaminophen (Percocet 325-5 Mg) 1 tab PO Q4H PRN PRN Reason: Pain (moderate 4-6) Pantoprazole Sodium (Protonix) 40 mg PO DAILY [facility] Lutein 20 Mg 0 each PO BEDTIME [facility] Last Admin: 02/21/20 20:56 Dose: Not Given Documented by: Potassium Chloride (Klor-Con M20) 20 meq PO QAM [facility] Potassium Chloride (Klor-Con 10) 10 meq PO BEDTIME [facility] Last Admin: 02/21/20 20:55 Dose: 10 meq Documented by: Simvastatin (Zocor) 20 mg PO BEDTIME [facility] Last Admin: 02/21/20 20:55 Dose: 20 mg Documented by: Discontinued Medications Bupivacaine HCl (Marcaine 0.5%) Confirm Administered Dose 30 ml .ROUTE .[facility] ONE Stop: 02/21/20 07:10 Last Admin: 02/21/20 08:31 Dose: 10 ml Documented by: Cefazolin Sodium (Ancef) Confirm Administered Dose 2 gm .ROUTE .[facility] ONE Stop: 02/21/20 07:47 Dexamethasone (Dexamethasone) Confirm Administered Dose 20 mg .ROUTE .[facility] ONE Stop: 02/21/20 08:55 Ephedrine Sulfate (Ephedrine 25 Mg/5 Ml Syringe) Confirm Administered Dose 25 mg IV .ST-[facility] ONE Stop: 02/21/20 08:24 Fentanyl (Sublimaze) Confirm Administered Dose 250 mcg .ROUTE .[facility] ONE Stop: 02/21/20 07:43 Fentanyl (Sublimaze) Confirm Administered Dose 100 mcg .ROUTE .[facility] ONE Stop: 02/21/20 08:58 Glycopyrrolate () Confirm Administered Dose 1 mg .ROUTE .[facility] ONE Stop: 02/21/20 08:54 Hydromorphone HCl (Dilaudid) Confirm Administered Dose 1 mg .ROUTE .[facility] ONE Stop: 02/21/20 08:50 Lactated Ringer's (Ringers, Lactated) 1,000 mls @ 125 mls/hr IV ASDIRECTED [facility] Stop: 02/21/20 23:00 Last Admin: 02/21/20 07:15 Dose: 125 mls/hr Documented by: Lidocaine HCl (Xylocaine-Mpf 1%) Confirm Administered Dose 4 mls @ as directed .ROUTE .[facility] ONE Stop: 02/21/20 07:43 Lactated Ringer's (Ringers, Lactated) Confirm Administered Dose 1,000 mls @ as directed .ROUTE .[facility] ONE Stop: 02/21/20 08:32 Ketorolac Tromethamine (Toradol) Confirm Administered Dose 30 mg .ROUTE .[facility] ONE Stop: 02/21/20 07:43 Lidocaine/Epinephrine (Xylocaine 1% With Epinephrine 1:100,000) Confirm Administered Dose 20 ml .ROUTE .[facility] ONE Stop: 02/21/20 07:10 Last Admin: 02/21/20 08:54 Dose: 5 ml Documented by: Lidocaine/Sodium Bicarbonate (Buffered Lidocaine 1% In Ns 8.4%) 0.25 ml IDERM ONETIME PRN PRN Reason: Prior to IV Start Stop: 02/21/20 18:00 Last Admin: 02/21/20 07:15 Dose: 0.25 ml Documented by: Midazolam HCl (Versed 1 Mg/Ml) Confirm Administered Dose 2 mg .ROUTE .STK-MED ONE Stop: 02/21/20 07:43 Miscellaneous Medication (Phenylephrine 1 Mg/10 Ml-Ns) Confirm Administered Dose 1 mg IV .STK-MED ONE Stop: 02/21/20 08:15 Ondansetron HCl (Zofran) Confirm Administered Dose 4 mg .ROUTE .STK-MED ONE Stop: 02/21/20 07:42 Propofol (Diprivan 20 Ml) Confirm Administered Dose 200 mg .ROUTE .STK-MED ONE Stop: 02/21/20 07:42 Rocuronium Howe (Zemuron) Confirm Administered Dose 50 mg .ROUTE .STK-MED ONE Stop: 02/21/20 07:42 Sodium Chloride (Saline Flush) 10 ml FLUSH ASDIRECTED PRN PRN Reason: Keep Vein Open Stop: 02/21/20 18:00 Sodium Chloride (Normal Saline) Confirm Administered Dose 50 ml .ROUTE .STK-MED ONE Stop: 02/21/20 07:10 Last Admin: 02/21/20 08:54 Dose: 15 ml Documented by:
[2020-02-22] MEDS: Calcium Carbonate/Vitamin D3 600 MG-200 Units Tab PO SCH (08:28)
[2020-02-22] MEDS: Docusate Sodium 100 MG Cap PO SCH (08:28)
[2020-02-22] MEDS: metFORMIN 500 MG Tab PO SCH (08:29)
[2020-02-22] MEDS ORDERED: Magnesium Oxide 400 MG Tab PO SCH (09:00)
[2020-02-22] MEDS ORDERED: Pantoprazole 40 MG Tab.CR PO SCH (09:00)
[2020-02-22] MEDS ORDERED: Citalopram 20 MG Tab PO SCH (09:00)
== END 2020-02-22 10:30 | disposition home or self-care (01) ==
LOC: JD.SDS 06:46 → JD.OB 10:02 → JD.SDS 02-22 10:30
PROVIDERS: ATTEND Obstetrics & Gynecology
DX: D25.1 Intramural leiomyoma of uterus (principal); D27.0 Benign neoplasm of right ovary; N72 Inflammatory disease of cervix uteri; N88.8 Other specified noninflammatory disorders of cervix uteri; I10 Essential (primary) hypertension; E11.9 Type 2 diabetes mellitus without complications; K21.9 Gastro-esophageal reflux disease without esophagitis; F32.9 Major depressive disorder, single episode, unspecified; E78.5 Hyperlipidemia, unspecified; E78.00 Pure hypercholesterolemia, unspecified; F41.9 Anxiety disorder, unspecified; Z11.59 Encounter for screening for other viral diseases; Z98.51 Tubal ligation status; Z79.899 Other long term (current) drug therapy; Z79.84 Long term (current) use of oral hypoglycemic drugs; Z88.1 Allergy status to other antibiotic agents
CPT/HCPCS: 36415; 58552; 80053; 82962; 83735; 85025; 86850; 86900; 86901; A9270; J0171; J0690; J1100; J1170; J1885; J2001; J2250; J2370; J2405; J2704; J3010; J3490; J7120; U0002